=== PATIENT | male | born 1985 | race Caucasian/White ===

== ENCOUNTER → 2017-01-25 | Outpatient (CLI) | payer BC ==
[2017-01-25 14:29] LABS: Appearance,Urine Clear (Clear); Bilirubin,Urine Negative (Negative); Glucose,Urine (UA) Negative (Negative); Ketones,Urine Negative (Negative); Leukocyte Esterase,Urine Negative (Negative); Nitrite,Urine Negative (Negative); PH, Urine 6.5 (5.0-8.0); Protein,Urine Negative (Negative); Specific Gravity,Urine 1.003 (1.001-1.035); UA Billing (MACRO vs. MICRO) CHEM; Urobilinogen,Urine <2.0 mg/dL (<2.0)
[2017-01-25 14:37] LABS: ALT 45 U/L (21-72); AST 34 U/L (17-59); Alkaline Phosphatase 49 U/L (38-126); Anion Gap 12 mmol/L; Blood Urea Nitrogen 13 mg/dL (9-20); Calcium 10.2 mg/dL (8.4-10.2); Carbon Dioxide 31 mmol/L (22-30); Chloride 99 mmol/L (98-107); Glucose 85 mg/dL (74-99); Magnesium 1.8 mg/dL (1.6-2.3); Non-African American GFR(MDRD) >60 (>60 ml/min/1.73 sqM); Phosphorous 3.9 mg/dL (2.5-4.5); Potassium 4.3 mmol/L (3.5-5.1); Sodium 142 mmol/L (137-145); Total Bilirubin 0.9 mg/dL (0.2-1.3); Total Protein 8.4 g/dL (6.3-8.2); Uric Acid 6.6 mg/dL (3.5-8.5)
[2017-01-25 15:22] LABS: CH 30.8; HCT 44.2 % (39.0-53.0); HDW 2.68; HGB 15.2 gm/dL (13.0-17.5); MCH 29.5 pg (25.0-35.0); MCHC 34.3 g/dL (31.0-37.0); MCV 85.9 fL (80.0-100.0); Mean Platelet Volume 7.2; RBC 5.14 m/uL (4.30-5.90); RDW 13.8 % (11.5-15.5); WBC 6.7 k/uL (3.8-10.6)
[2017-01-25 19:11] LABS: Iron Saturation 25.5 (15.00-50.00)
== END | disposition home or self-care (01) ==
LOC: LABWHC1 13:36
PROVIDERS: ATTEND Internal Medicine
DX: E83.39 Other disorders of phosphorus metabolism (principal); D63.1 Anemia in chronic kidney disease; N18.2 Chronic kidney disease, stage 2 (mild); M10.9 Gout, unspecified; N39.0 Urinary tract infection, site not specified
CPT/HCPCS: 36415; 80053; 81003; 82306; 82570; 82728; 83540; 83550; 83735; 83970; 84100; 84156; 84550; 85027

== ENCOUNTER → 2017-02-14 | Outpatient (CLI) | payer BC ==
--- NOTE | 2017-02-14 22:43 | NM ---
EXAMINATION TYPE: NM parathyroid with SPECT DATE OF EXAM: 02/14/2017 COMPARISON: NONE HISTORY: 31-year-old male hypercalcemia. TECHNIQUE: Following administration of 25.3 mCi Tc99m Sestamibi. Anterior projection images of the neck and ches t were obtained 10 minutes and 3.5 hours post injection. SPECT images of the neck and chest were obt ained and reconstructed in three axes. FINDINGS: Thyroid tracer washout: Delayed images demonstrate complete to near-complete tracer washout from the thyroid. Parathyroid uptake: None. The delayed images do not demonstrate any focal abnormal persistent uptake in the region of the parathyroid glands to suggest parathyroid adenoma. Normal uptake: There is physiological tracer uptake in the salivary glands and thyroid gland. IMPRESSION: Normal parathyroid imaging study. No evidence for parathyroid adenoma in the neck.
== END | disposition home or self-care (01) ==
LOC: RADNMMAIN 11:25
PROVIDERS: ATTEND Internal Medicine
DX: E83.52 Hypercalcemia (principal)
CPT/HCPCS: 78071; A9500

== ENCOUNTER → 2017-08-22 | Outpatient (CLI) | payer BC ==
[2017-08-22 08:13] LABS: HGB 15.9 gm/dL (13.0-17.5); MCH 28.8 pg (25.0-35.0); MCHC 35.2 g/dL (31.0-37.0); MCV 81.7 fL (80.0-100.0); Platelet Count 201 k/uL (150-450); RBC 5.51 m/uL (4.30-5.90); RDW 12.4 % (11.5-15.5); WBC 5.1 k/uL (3.8-10.6)
[2017-08-22 08:26] LABS: ALT 39 U/L (21-72); AST 36 U/L (17-59); Albumin 4.8 g/dL (3.5-5.0); Alkaline Phosphatase 60 U/L (38-126); Anion Gap 14 mmol/L; Blood Urea Nitrogen 20 mg/dL (9-20); Calcium 10.1 mg/dL (8.4-10.2); Carbon Dioxide 31 mmol/L (22-30); Chloride 98 mmol/L (98-107); Glucose 99 mg/dL (74-99); Phosphorus 4.7 mg/dL (2.5-4.5); Potassium 4.2 mmol/L (3.5-5.1); Sodium 143 mmol/L (137-145); Total Bilirubin 0.8 mg/dL (0.2-1.3); Total Protein 8.1 g/dL (6.3-8.2); Uric Acid 5.4 mg/dL (3.5-8.5)
[2017-08-22 09:10] LABS: Appearance,Urine Clear (Clear); Bilirubin,Urine Negative (Negative); Blood,Urine Negative (Negative); Color,Urine Light Yellow; Glucose,Urine (UA) Negative (Negative); Ketones,Urine Negative (Negative); Leukocyte Esterase,Urine Negative (Negative); Nitrite,Urine Negative (Negative); PH, Urine 6.5 (5.0-8.0); Protein,Urine Negative (Negative); Specific Gravity,Urine 1.012 (1.001-1.035); Urobilinogen,Urine <2.0 mg/dL (<2.0)
[2017-08-22 11:33] LABS: Calcium 24 Hour,Urine 141.9 mg/24 hr
[2017-08-22 11:34] LABS: Creatinine,Urine Random 114.1 mg/dL
[2017-08-22 11:36] LABS: Creatinine 24 Hour,Urine 2098.4 mg/24hr (1000.0-2000.0)
[2017-08-22 16:06] LABS: Vitamin D 25 Hydroxy 13.2 ng/mL (30.0-100.0)
[2017-08-22 17:10] LABS: Parathyroid Hormone Intact 30.9 pg/mL (14.0-72.0)
== END | disposition home or self-care (01) ==
LOC: LABWHC1 07:56
PROVIDERS: ATTEND Nurse Practitioner Family
DX: N18.2 Chronic kidney disease, stage 2 (mild) (principal); D63.1 Anemia in chronic kidney disease; E83.39 Other disorders of phosphorus metabolism; E79.0 Hyperuricemia without signs of inflammatory arthritis and tophaceous disease; R80.9 Proteinuria, unspecified; E83.52 Hypercalcemia
CPT/HCPCS: 36415; 80053; 81003; 81050; 82164; 82306; 82340; 82570; 83735; 83970; 84100; 84156; 84550; 85027

== ENCOUNTER → 2017-09-13 | Outpatient (CLI) | payer BC ==
--- NOTE | 2017-09-13 17:11 | US ---
EXAMINATION TYPE: US kidneys/renal and bladder DATE OF EXAM: 09/13/2017 COMPARISON: 03/2015 CLINICAL HISTORY: N18.2 Chronic Kidney Disease Stage 2. 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 No nephrolithiasis is seen. No micaela s are identified. The urinary bladder is anechoic. IMPRESSION: In the region of previously seen posterior urinary bladder diverticulum there is redemonstration of a small diverticulum containing internal debris, possibly from stasis.
== END | disposition home or self-care (01) ==
LOC: RADUSWWP 15:17
PROVIDERS: ATTEND Internal Medicine
DX: N32.3 Diverticulum of bladder (principal); N18.2 Chronic kidney disease, stage 2 (mild)
CPT/HCPCS: 76770

== ENCOUNTER → 2018-03-22 | Outpatient (CLI) | payer BC ==
[2018-03-22 08:32] LABS: HCT 44.9 % (39.0-53.0); HGB 15.4 gm/dL (13.0-17.5); MCH 29.2 pg (25.0-35.0); MCHC 34.4 g/dL (31.0-37.0); MCV 85.1 fL (80.0-100.0); Mean Platelet Volume 6.6; Platelet Count 195 k/uL (150-450); RBC 5.28 m/uL (4.30-5.90); RDW 12.9 % (11.5-15.5)
[2018-03-22 10:25] LABS: Appearance,Urine Clear (Clear); Bilirubin,Urine Negative (Negative); Blood,Urine Negative (Negative); Color,Urine Yellow; Glucose,Urine (UA) Negative (Negative); Ketones,Urine Negative (Negative); Protein,Urine Negative (Negative); Specific Gravity,Urine 1.015 (1.001-1.035)
[2018-03-22 10:26] LABS: Leukocyte Esterase,Urine Negative (Negative); Nitrite,Urine Negative (Negative); Urobilinogen,Urine <2.0 mg/dL (<2.0)
[2018-03-22 17:21] LABS: Vitamin D 25 Hydroxy 13.6 ng/mL (30.0-100.0)
[2018-03-22 17:34] LABS: Albumin 4.9 g/dL (3.80-4.90); Albumin/Globulin Ratio 1.96 (1.20-2.10); Anion Gap 8.1 mmol/L (4.00-12.00); Calcium 9.7 mg/dL (8.7-10.3); Carbon Dioxide 28.9 mmol/L (21.6-31.8); Globulin 2.5 g/dL (2.1-3.7); Phosphorus 3.5 mg/dL (2.4-5.1); Potassium 4.4 mmol/L (3.5-5.5); Total Bilirubin 0.9 mg/dL (0.3-1.2); Total Protein 7.4 g/dL (6.2-8.2); Uric Acid 5.8 mg/dL (3.7-8.7)
[2018-03-22 17:51] LABS: Parathyroid Hormone Intact 19.1 pg/mL (14.0-72.0)
[2018-03-22 18:30] LABS: Creatinine,Urine Random 138.5 mg/dL
[2018-03-22 19:28] LABS: Total Protein,Urine Random 9.1 mg/dL (0.0-13.5)
== END | disposition home or self-care (01) ==
LOC: LABWHC1 07:40
PROVIDERS: ATTEND Nurse Practitioner Family
DX: E55.9 Vitamin D deficiency, unspecified (principal); E79.0 Hyperuricemia without signs of inflammatory arthritis and tophaceous disease; N18.2 Chronic kidney disease, stage 2 (mild); D63.1 Anemia in chronic kidney disease; N39.0 Urinary tract infection, site not specified; R80.9 Proteinuria, unspecified
CPT/HCPCS: 36415; 80053; 81003; 82306; 82570; 83735; 83970; 84100; 84156; 84550; 85027

== ENCOUNTER → 2018-05-23 | Outpatient (CLI) | payer BC ==
[2018-05-23 09:02] LABS: HCT 43.9 % (39.0-53.0); HGB 15.4 gm/dL (13.0-17.5); MCH 29.7 pg (25.0-35.0); MCHC 35.1 g/dL (31.0-37.0); MCV 84.8 fL (80.0-100.0); Mean Platelet Volume 6.9; Platelet Count 180 k/uL (150-450); RBC 5.18 m/uL (4.30-5.90); WBC 5.1 k/uL (3.8-10.6)
[2018-05-23 09:05] LABS: Appearance,Urine Clear (Clear); Bilirubin,Urine Negative (Negative); Blood,Urine Negative (Negative); Color,Urine Light Yellow; Glucose,Urine (UA) Negative (Negative); Ketones,Urine Negative (Negative); Leukocyte Esterase,Urine Negative (Negative); Nitrite,Urine Negative (Negative); Protein,Urine Negative (Negative); Urobilinogen,Urine <2.0 mg/dL (<2.0)
[2018-05-23 16:45] LABS: Albumin 4.8 g/dL (3.80-4.90); Albumin/Globulin Ratio 2.29 (1.20-2.10); Anion Gap 9.6 mmol/L (4.00-12.00); Bilirubin, Conjugated 0.2 mg/dL (0.20-0.40); Bilirubin,Unconjugated 0.7 mg/dL; Calcium 9.7 mg/dL (8.7-10.3); Carbon Dioxide 29.4 mmol/L (21.6-31.8); Globulin 2.1 g/dL (1.6-3.3); LDL Cholesterol,Calculated 100.4 mg/dL (0.0-131.0); Phosphorus 4.2 mg/dL (2.4-5.1); Potassium 4.3 mmol/L (3.5-5.5); Total Bilirubin 0.9 mg/dL (0.3-1.2); Total Protein 6.9 g/dL (6.2-8.2); Uric Acid 6.9 mg/dL (3.7-8.7); VLDL Calculation 64.6 mg/dL (5.00-40.00)
[2018-05-23 16:47] LABS: Parathyroid Hormone Intact 28.6 pg/mL (14.0-72.0)
[2018-05-23 16:52] LABS: T4, Free (Free Thyroxine) 1.2 ng/dL (0.80-1.80)
[2018-05-23 16:53] LABS: Vitamin D 25 Hydroxy 22.5 ng/mL (30.0-100.0)
[2018-05-23 17:14] LABS: Creatinine,Urine Random 100.1 mg/dL
[2018-05-23 18:19] LABS: Total Protein,Urine Random 6.5 mg/dL (0.0-13.5)
== END | disposition home or self-care (01) ==
LOC: LABWHC1 08:05
PROVIDERS: ATTEND Nurse Practitioner Family
DX: N18.2 Chronic kidney disease, stage 2 (mild) (principal); D63.1 Anemia in chronic kidney disease; E55.9 Vitamin D deficiency, unspecified; N39.0 Urinary tract infection, site not specified; R80.9 Proteinuria, unspecified; M10.9 Gout, unspecified; Z90.5 Acquired absence of kidney
CPT/HCPCS: 36415; 80053; 80061; 80076; 81003; 82306; 82570; 83735; 83970; 84100; 84156; 84439; 84443; 84550; 85027

== ENCOUNTER → 2018-09-19 | Outpatient (CLI) | payer BC ==
[2018-09-19 10:11] LABS: HCT 45.6 % (39.0-53.0); HGB 15.8 gm/dL (13.0-17.5); MCH 29.1 pg (25.0-35.0); MCHC 34.6 g/dL (31.0-37.0); MCV 84.1 fL (80.0-100.0); Mean Platelet Volume 6.6; Platelet Count 190 k/uL (150-450); RBC 5.43 m/uL (4.30-5.90); RDW 13.2 % (11.5-15.5); WBC 4.9 k/uL (3.8-10.6)
[2018-09-19 10:25] LABS: Appearance,Urine Clear (Clear); Bilirubin,Urine Negative (Negative); Blood,Urine Negative (Negative); Color,Urine Light Yellow; Glucose,Urine (UA) Negative (Negative); Ketones,Urine Negative (Negative); Leukocyte Esterase,Urine Negative (Negative); Nitrite,Urine Negative (Negative); Protein,Urine Negative (Negative); Specific Gravity,Urine 1.016 (1.001-1.035); Urobilinogen,Urine <2.0 mg/dL (<2.0)
[2018-09-19 17:21] LABS: Iron Saturation 19.06 (15.00-50.00)
[2018-09-19 17:31] LABS: Albumin 4.8 g/dL (3.80-4.90); Anion Gap 9.2 mmol/L (4.00-12.00); Calcium 9.7 mg/dL (8.7-10.3); Carbon Dioxide 26.8 mmol/L (21.6-31.8); Globulin 2.4 g/dL (1.6-3.3); Magnesium 1.9 mg/dL (1.5-2.4); Phosphorus 3.6 mg/dL (2.4-5.1); Total Protein 7.2 g/dL (6.2-8.2); Uric Acid 6.9 mg/dL (3.7-8.7)
[2018-09-19 17:48] LABS: Parathyroid Hormone Intact 26.8 pg/mL (14.0-72.0)
== END | disposition home or self-care (01) ==
LOC: LABWHC1 09:00
PROVIDERS: ATTEND Internal Medicine
DX: N39.0 Urinary tract infection, site not specified (principal); N25.81 Secondary hyperparathyroidism of renal origin; M10.9 Gout, unspecified; E55.9 Vitamin D deficiency, unspecified; D63.1 Anemia in chronic kidney disease; N18.2 Chronic kidney disease, stage 2 (mild)
CPT/HCPCS: 36415; 80053; 81003; 82306; 82728; 83540; 83550; 83735; 83970; 84100; 84550; 85027

== ENCOUNTER → 2018-12-18 | Outpatient (CLI) | payer BC ==
[2018-12-18 08:24] LABS: Appearance,Urine Clear (Clear); Bilirubin,Urine Negative (Negative); Blood,Urine Negative (Negative); Color,Urine Yellow; Glucose,Urine (UA) Negative (Negative); Ketones,Urine Negative (Negative); Leukocyte Esterase,Urine Negative (Negative); Nitrite,Urine Negative (Negative); Protein,Urine Negative (Negative); Specific Gravity,Urine 1.011 (1.001-1.035); Urobilinogen,Urine <2.0 mg/dL (<2.0)
[2018-12-18 08:25] LABS: HCT 43.5 % (39.0-53.0); HGB 15.4 gm/dL (13.0-17.5); MCH 29.9 pg (25.0-35.0); MCHC 35.4 g/dL (31.0-37.0); MCV 84.6 fL (80.0-100.0); Mean Platelet Volume 6.4; Platelet Count 208 k/uL (150-450); RBC 5.15 m/uL (4.30-5.90); RDW 13.5 % (11.5-15.5); WBC 4.8 k/uL (3.8-10.6)
[2018-12-18 17:40] LABS: Iron Saturation 27.92 (15.00-50.00)
[2018-12-18 17:51] LABS: Vitamin D 25 Hydroxy 28.1 ng/mL (30.0-100.0)
[2018-12-18 18:11] LABS: African American GFR (CKD) 103.1 (60.0-200.0); Albumin 4.7 g/dL (3.80-4.90); Albumin/Globulin Ratio 1.81 (1.60-3.17); Anion Gap 11.8 mmol/L (4.00-12.00); BUN/Creat Ratio 12.73 Ratio (12.00-20.00); Calcium 9.8 mg/dL (8.7-10.3); Carbon Dioxide 28.2 mmol/L (21.6-31.8); Globulin 2.6 g/dL (1.6-3.3); Phosphorus 4.5 mg/dL (2.4-5.1); Total Bilirubin 1.1 mg/dL (0.3-1.2); Total Protein 7.3 g/dL (6.2-8.2); Uric Acid 6.9 mg/dL (3.7-8.7)
== END | disposition home or self-care (01) ==
LOC: LABWHC1 07:43
PROVIDERS: ATTEND Internal Medicine
DX: D64.9 Anemia, unspecified (principal); N39.0 Urinary tract infection, site not specified; N25.81 Secondary hyperparathyroidism of renal origin; E55.9 Vitamin D deficiency, unspecified; M10.9 Gout, unspecified; N18.2 Chronic kidney disease, stage 2 (mild)
CPT/HCPCS: 36415; 80053; 81003; 82306; 82728; 83540; 83550; 83735; 83970; 84100; 84550; 85027

== ENCOUNTER → 2019-04-16 | Outpatient (CLI) | payer BC ==
[2019-04-16 16:48] LABS: Basophils % (A) 1 %; Eosinophils # (A) 0.2 k/uL (0-0.7); Eosinophils % (A) 3 %; HCT 44.3 % (39.0-53.0); HGB 15.6 gm/dL (13.0-17.5); Lymphocytes # (A) 1.9 k/uL (1.0-4.8); Lymphocytes % (A) 28 %; MCH 29.6 pg (25.0-35.0); MCHC 35.1 g/dL (31.0-37.0); MCV 84.3 fL (80.0-100.0); Mean Platelet Volume 6.2; Monocytes # (A) 0.5 k/uL (0-1.0); Monocytes % (A) 8 %; Neutrophils # (A) 3.9 k/uL (1.3-7.7); Neutrophils % (A) 58 %; Platelet Count 225 k/uL (150-450); RBC 5.26 m/uL (4.30-5.90); RDW 12.5 % (11.5-15.5); WBC 6.6 k/uL (3.8-10.6)
[2019-04-16 16:49] LABS: Appearance,Urine Clear (Clear); Bilirubin,Urine Negative (Negative); Blood,Urine Negative (Negative); Color,Urine Colorless; Glucose,Urine (UA) Negative (Negative); Ketones,Urine Negative (Negative); Leukocyte Esterase,Urine Negative (Negative); Nitrite,Urine Negative (Negative); PH, Urine 6.5 (5.0-8.0); Protein,Urine Negative (Negative); Specific Gravity,Urine 1.001 (1.001-1.035); Urobilinogen,Urine <2.0 mg/dL (<2.0)
[2019-04-16 23:57] LABS: % Iron Saturation 24.1 (15.00-50.00); African American GFR (CKD) 103.1 (60.0-200.0); Albumin 4.9 g/dL (3.80-4.90); Albumin/Globulin Ratio 2.04 (1.60-3.17); Anion Gap 9.5 mmol/L (4.00-12.00); BUN/Creat Ratio 14.55 Ratio (12.00-20.00); Calcium 9.8 mg/dL (8.7-10.3); Carbon Dioxide 28.5 mmol/L (21.6-31.8); Globulin 2.4 g/dL (1.6-3.3); Phosphorus 4.2 mg/dL (2.4-5.1); Total Bilirubin 1.1 mg/dL (0.3-1.2); Total Protein 7.3 g/dL (6.2-8.2)
[2019-04-17 00:07] LABS: Ferritin 168.5 ng/mL (22.0-322.0)
== END | disposition home or self-care (01) ==
LOC: LABWHC1 16:28
PROVIDERS: ATTEND Nurse Practitioner Family
DX: N18.2 Chronic kidney disease, stage 2 (mild) (principal)
CPT/HCPCS: 36415; 80053; 81003; 82306; 82728; 83540; 83550; 83735; 83970; 84100; 84550; 85025

== ENCOUNTER → 2019-11-27 | Outpatient (CLI) | payer BC ==
[2019-11-27 10:06] LABS: HCT 46.2 % (39.0-53.0); HGB 16.2 gm/dL (13.0-17.5); MCH 29.8 pg (25.0-35.0); MCHC 34.9 g/dL (31.0-37.0); MCV 85.2 fL (80.0-100.0); Mean Platelet Volume 6.8; Platelet Count 187 k/uL (150-450); RBC 5.43 m/uL (4.30-5.90); WBC 5.4 k/uL (3.8-10.6)
[2019-11-27 10:10] LABS: Appearance,Urine Clear (Clear); Bilirubin,Urine Negative (Negative); Blood,Urine Negative (Negative); Color,Urine Yellow; Glucose,Urine (UA) Negative (Negative); Ketones,Urine Negative (Negative); Leukocyte Esterase,Urine Negative (Negative); Nitrite,Urine Negative (Negative); Protein,Urine Negative (Negative); Specific Gravity,Urine 1.016 (1.001-1.035); Urobilinogen,Urine <2.0 mg/dL (<2.0)
[2019-11-27 17:29] LABS: Phosphorus 4.2 mg/dL (2.4-5.1); Uric Acid 6.7 mg/dL (3.7-8.7)
[2019-11-27 17:30] LABS: % Iron Saturation 19.61 (15.00-50.00); African American GFR (CKD) 102.4 (60.0-200.0); Albumin 4.8 g/dL (3.80-4.90); Albumin/Globulin Ratio 1.85 (1.60-3.17); Anion Gap 11.2 mmol/L (4.00-12.00); BUN/Creat Ratio 13.64 Ratio (12.00-20.00); Calcium 9.6 mg/dL (8.7-10.3); Carbon Dioxide 26.8 mmol/L (21.6-31.8); Globulin 2.6 g/dL (1.6-3.3); Magnesium 1.9 mg/dL (1.5-2.4); Non-African American GFR(CKD) 88.4 (60.0-200.0); Potassium 4.3 mmol/L (3.5-5.5); Total Protein 7.4 g/dL (6.2-8.2)
[2019-11-27 17:38] LABS: Ferritin 200.4 ng/mL (22.0-322.0)
== END | disposition home or self-care (01) ==
LOC: LABWHC1 08:31
PROVIDERS: ATTEND Nurse Practitioner Family
DX: N18.2 Chronic kidney disease, stage 2 (mild) (principal); N39.0 Urinary tract infection, site not specified; N25.81 Secondary hyperparathyroidism of renal origin; E55.9 Vitamin D deficiency, unspecified; M10.9 Gout, unspecified; D63.1 Anemia in chronic kidney disease
CPT/HCPCS: 36415; 80053; 81003; 82306; 82728; 83540; 83550; 83735; 83970; 84100; 84550; 85027

== ENCOUNTER → 2020-08-04 | Outpatient (CLI) | payer BC | END | disposition home or self-care (01) | LOC: LABWHC1 13:50 | PROVIDERS: ATTEND Dermatology | DX: L30.9 Dermatitis, unspecified (principal); L90.5 Scar conditions and fibrosis of skin; B07.8 Other viral warts | CPT/HCPCS: 36415; 86592; 86780 ==

== ENCOUNTER → 2022-08-17 | Outpatient (CLI) | payer BC ==
[2022-08-18 03:27] LABS: African American GFR (CKD) 111.2 (60.0-200.0); Albumin 4.9 g/dL (3.8-4.9); Albumin/Globulin Ratio 1.52 (1.60-3.17); BUN/Creat Ratio 16.14 Ratio (12.00-20.00); Blood Urea Nitrogen 16.3 mg/dL (9.0-27.0); Calcium 9.9 mg/dL (8.7-10.3); Carbon Dioxide 27.5 mmol/L (20.0-27.5); Globulin 3.3 g/dL (1.6-3.3); Non-African American GFR(CKD) 95.9 (60.0-200.0); Potassium 4.3 mmol/L (3.5-5.5); Total Bilirubin 0.5 mg/dL (0.30-1.20); Total Protein 8.2 g/dL (6.2-8.2)
== END | disposition home or self-care (01) ==
LOC: LABWHC1 15:19
PROVIDERS: ATTEND Dermatology
DX: B35.1 Tinea unguium (principal); D18.01 Hemangioma of skin and subcutaneous tissue
CPT/HCPCS: 36415; 80053

== ENCOUNTER → 2024-02-15 | Outpatient (CLI) | payer BC ==
--- NOTE | 2024-02-15 16:23 | US ---
EXAMINATION TYPE: US kidneys/renal and bladder DATE OF EXAM: 02/15/2024 COMPARISON: US 2022, 2017, 2014, CT 2014 CLINICAL INDICATION: Male, 38 years old with history of N18.2 CHRONIC KIDNEY DISEASE, STAGE 2 (MILD); Atrophic right kidney. CKD per order TECHNIQUE: Grayscale and color Doppler imaging of the bilateral kidneys and urinary bladder: EXAM MEASUREMENTS: Right Kidney: Not seen Left Kidney: 13.3 x 7.0 x 7.6 cm Right Kidney: Not seen Left Kidney: Enlarged. Bladder: *Hyperechoic area seen within posterior bladder wall, as seen on prior. Area measures: 1.2 x 1.6 x 0.9 cm. Evaluation for neoplasm recommended if this not been previously performed. Hypoechoic area seen near bladder, possible diverticula- measures 4.7 x 3.4 x 3.1 cm, Present previou sly. Bilateral Jets seen: Left IMPRESSION: 1. Small dependent echogenic mass within the urinary bladder, present previously. Workup for neoplasm if not previously performed. 2. Suspected urinary bladder diverticulum. [facility], Workstation: [id number], 02/15/2024 4:21 PM
== END | disposition home or self-care (01) ==
LOC: RADUSWWP 15:23
PROVIDERS: ATTEND Internal Medicine
DX: N18.2 Chronic kidney disease, stage 2 (mild)
CPT/HCPCS: 76770